=== PATIENT | male | born 1930 | race Caucasian/White ===

== ENCOUNTER 2017-04-24 11:14 | Emergency (ER) | payer MEDICARE, BC ==
[2017-04-24] MEDS ORDERED: METHYLPREDNISOLONE INJ 125 MG/2 ML SDV IV ONE (11:22)
[2017-04-24] MEDS ORDERED: IPRATROPIUM/ALBUTEROL 0.5-2.5 MG/3 ML AMPUL NEB ONE ×2 (11:22→11:26)
[2017-04-24] MEDS ORDERED: ALBUTEROL SULFATE 0.083% NEB 2.5 MG/3 ML AMPUL NEB ONE (11:26)
[2017-04-24] MEDS ORDERED: METHYLPREDNISOLONE INJ 125 MG/2 ML SDV ONE (11:27)
[2017-04-24] MEDS ORDERED: ALBUTEROL SULFATE 0.083% NEB 2.5 MG/3 ML AMPUL NEB SCH (11:37)
[2017-04-24] MEDS ORDERED: NITROGLYCERIN/D5W 50 MG/250 ML RTUINJ IV PRN (11:40)
--- NOTE | 2017-04-24 11:41 | ER Document Report ---
ED Respiratory Problem - General Mode of Arrival: Medic Information source: Patient - HPI Patient complains to provider of: COPD, Cough, Short of breath Associated symptoms: Other - see above <DAISHAVINCENT - Last Filed: 04/24/17 12:41> <LUISCLARK JAMAL - Last Filed: 04/24/17 17:26> - General Stated Complaint: SHORTNESS OF BREATH Time Seen by Provider: 04/24/17 11:31 Notes: Patient is an 87 year old male who presents to the ED via EMS with complaints of dyspnea, a productive cough and chest pain. Patient has a history of a fib and copd and does not use his nebulizer treatments. (VINCENT ASHTON) - Related Data Allergies/Adverse Reactions: No Known Allergies Allergy (Verified 04/24/17 11:43) Past Medical History - General Information source: Patient - Social History Smoking Status: Unknown if Ever Smoked Family History: Reviewed & Not Pertinent - Past Medical History Cardiac Medical History: Reports: Hx Atrial Fibrillation Pulmonary Medical History: Reports: Hx COPD <VINCENT ASHTON - Last Filed: 04/24/17 12:41> Review of Systems - Review of Systems Constitutional: No symptoms reported EENT: No symptoms reported Cardiovascular: See HPI, Chest pain Respiratory: See HPI, Cough, Short of breath, Sputum Gastrointestinal: No symptoms reported Genitourinary: No symptoms reported Male Genitourinary: No symptoms reported Musculoskeletal: No symptoms reported Skin: No symptoms reported Hematologic/Lymphatic: No symptoms reported Neurological/Psychological: No symptoms reported <VINCENT ASHTON - Last Filed: 04/24/17 12:41> Physical Exam - General General appearance: Alert, Other - appears uncomfortable In distress: Moderate - HEENT Head: Normocephalic, Atraumatic Eyes: Normal Extraocular movements intact: Yes Pupils: PERRL Mucous membranes: Dry - Respiratory Respiratory status: Tachypnea, Other - hypoxic Breath sounds: Other - crackles at bases - Cardiovascular Rhythm: Regular Heart sounds: Normal auscultation Murmur: No - Abdominal Inspection: Normal - Back Back: Normal - Extremities General upper extremity: Normal inspection, Normal ROM General lower extremity: Normal inspection, Normal ROM. No: Edema - Neurological Neuro grossly intact: Yes - Psychological Associated symptoms: Normal affect, Normal mood - Skin Skin Temperature: Warm Skin Moisture: Dry Skin Color: Normal <VINCENT ASHTON - Last Filed: 04/24/17 12:41> - Vital signs Vitals: Resp Pulse Ox 29 H 94 04/24/17 11:22 04/24/17 11:22 Course - Laboratory Result Diagrams: 04/24/17 11:32 04/24/17 11:32 - Consults Dr. Mccarty Time consulted: 11:40 [facility] Transfer Time consulted: 12:41 <VINCENT ASHTON - Last Filed: 04/24/17 12:41> - Laboratory Result Diagrams: 04/24/17 11:32 04/24/17 11:32 - Diagnostic Test Radiology reviewed: Reports reviewed <CLARK SMITH - Last Filed: 04/24/17 17:26> - Re-evaluation Re-evalutation: 04/24/17 15:23 Patient is an 87-year-old male who comes in with difficulty breathing. Patient apparently has had chest pain all night. It is substernal. Patient has been given aspirin here in the emergency department. Patient's troponin has come back at 20. Patient also has an elevated BNP and vascular congestion on his chest x-ray. Patient was started on BiPAP and a nitroglycerin drip. Patient was on 50 mcg which controlled his chest pain. He was titrated down due to issues with his blood pressure. Patient was then titrated back up because of chest pain. Patient was discussed with [facility] and due to his chest pain , elevated troponin, ischemic changes on EKG, and new onset heart failure will be transferred for further evaluation and possible stent. This is been discussed at length with the patient who agrees with this plan. Patient also will be given simvastatin and Plavix on the recommendation of the accepting physician, Dr. Bojorquez. 04/24/17 17:23 Patient is stable at this [facility] ( CLARK SMITH) - Vital Signs Vital signs: Temp Pulse Resp BP Pulse Ox 98.4 F 26 H 103/73 98 04/24/17 11:56 04/24/17 15:31 04/24/17 15:31 04/24/17 15:31 - Laboratory Laboratory results interpreted by pa: 04/24/17 04/24/17 04/24/17 11:32 11:32 11:32 WBC 11.0 H Hgb 12.8 L MCH 26.6 L MCHC 31.9 L RDW 16.6 H Seg Neutrophils % 82.0 H Lymphocytes % 8.1 L Absolute Neutrophils 9.0 H PT ABG pO2 Potassium 5.2 H Creatinine 1.66 H Est GFR ( Amer) 48 L Est GFR (Non-Af Amer) 39 L Direct Bilirubin 0.5 H AST 124 H Creatine Kinase 1033 H CK-MB (CK-2) 95.80 H NT-Pro-B Natriuret Pep 04/24/17 04/24/17 04/24/17 11:32 11:32 15:12 WBC Hgb MCH MCHC RDW Seg Neutrophils % Lymphocytes % Absolute Neutrophils PT 15.9 H ABG pO2 100.3 H Potassium Creatinine Est GFR ( Amer) Est GFR (Non-Af Amer) Direct Bilirubin AST Creatine Kinase CK-MB (CK-2) NT-Pro-B Natriuret Pep 69678 H - Consults Dr. Mccarty Reason for consultation: 04/24/17 1140 Put in a message for Dr. Mccarty to review patient and call be back. 1143 Dr. Mccarty returned the call. He said to not give any lytics and that patients EKG looks like ischemic changes. (VINCENT ASHTON) Critical Care Note - Critical Care Note Total time excluding time spent on procedures (mins): 120 - Assessment and management of respiratory distress, chest pain, acute coronary syndrome,NSTEMI coordination of transfer, consultation with specialist,, multiple re-evaluations , counseling of patient and family <CLARK SMITH - Last Filed: 04/24/17 17:26> Discharge <VINCENT ASHTON - Last Filed: 04/24/17 12:41> <CLARK SMITH - Last Filed: 04/24/17 17:26> - Discharge Clinical Impression: Acute coronary syndrome, Respiratory distress Acute heart failure Qualifiers: Heart failure type: unspecified heart failure type Qualified Code(s): I50.9 - Heart failure, unspecified Condition: Stable Disposition: [facility] Referrals: JOSE ROBERTO ESPINOZA MD [Primary Care Provider] - Follow up as needed Scribe Attestation: 04/24/17 17:26 I personally performed the services described in the documentation, reviewed and edited the documentation which was dictated to the scribe in my presence, and it accurately records my words and actions. (CLARK SMITH) Scribe Documentation - Scribe Written by Josette:: josette Mendiola, 04/24/2017, 1221 acting as scribe for :: Luis <VINCENT ASHTON - Last Filed: 04/24/17 12:41>
[2017-04-24] MEDS ORDERED: ASPIRIN 81 MG TABLET, CHEWABLE PO ONE (11:42)
[2017-04-24 12:01] LABS: ABSOLUTE EOSINOPHILS # (AUTO) 0.1 10^3/uL (0.0-0.6); ABSOLUTE LYMPHOCYTES (AUTO) 0.9 10^3/uL (0.5-4.7); ABSOLUTE MONOCYTES (AUTO) 0.9 10^3/uL (0.1-1.4); BASOPHILS % (AUTO) 0.4 % (0-2); EOSINOPHILS % (AUTO) 1.3 % (0-6); HEMOGLOBIN 12.8 g/dL (13.5-17.0); HGB HCT DIFFERENCE -1.6; LYMPHOCYTES % (AUTO) 8.1 % (13-45); MEAN CORPUSCULAR HEMOGLOBIN 26.6 pg (27.0-33.4); MEAN CORPUSCULAR HGB CONC 31.9 g/dL (32.0-36.0); MEAN CORPUSCULAR VOLUME 83 fl (80-97); MONOCYTES % (AUTO) 8.2 % (3-13); RED CELL DISTRIBUTION WIDTH 16.6 % (11.5-14.0)
--- NOTE | 2017-04-24 12:23 | RADIOLOGY REPORT (SQ) ---
EXAM DESCRIPTION: CHEST SINGLE VIEW COMPLETED DATE/TIME: 04/24/2017 11:53 am REASON FOR STUDY: shortness of breath COMPARISON: 07/07/2010 EXAM PARAMETERS: NUMBER OF VIEWS: One view. TECHNIQUE: Single frontal radiographic view of the chest acquired. RADIATION DOSE: NA LIMITATIONS: None. FINDINGS: LUNGS AND PLEURA: Chronic changes versus infiltrate in the left base. Possible lateral pl eural thickening the left lower hemithorax. MEDIASTINUM AND HILAR STRUCTURES: No masses. Contour normal. HEART AND VASCULAR STRUCTURES: Heart size is borderline. There is no adithya CHF. BONES: No acute findings. HARDWARE: None in the chest. OTHER: No other significant finding. IMPRESSION: 1. Left lower lobe pneumonia versus chronic change. 2. Possible pleural thickening on the left versus loculated small pleural effusion. TECHNICAL DOCUMENTATION: JOB ID: [id number]
[2017-04-24 12:24] LABS: ALANINE AMINOTRANSFERASE 28 U/L (21-72); ALBUMIN 4.2 g/dL (3.5-5.0); ALKALINE PHOSPHATASE 114 U/L (38-126); ANION GAP 14 (5-19); ASPARTATE AMINO TRANSFERASE 124 U/L (17-59); BILIRUBIN,DIRECT 0.5 mg/dL (0.0-0.4); BILIRUBIN,TOTAL 1.1 mg/dL (0.2-1.3); BLOOD UREA NITROGEN 20 mg/dL (7-20); CALCIUM 9.9 mg/dL (8.4-10.2); CARBON DIOXIDE 26 mmol/L (22-30); CHLORIDE 100 mmol/L (98-107); CREATINE KINASE 1033 U/L (55-170); CREATININE RESULT 1.66 mg/dL (0.52-1.25); GLUCOSE 104 mg/dL (75-110); POTASSIUM 5.2 mmol/L (3.6-5.0); SODIUM 140.3 mmol/L (137-145); TOTAL PROTEIN 8.2 g/dL (6.3-8.2)
[2017-04-24] MEDS ORDERED: NORMAL SALINE 500 ML IV ONE (12:26)
[2017-04-24 12:36] LABS: CREATINE KINASE MB 95.8 ng/mL (<4.55)
[2017-04-24 12:39] LABS: TROPONIN I 20.7 ng/mL
--- NOTE | 2017-04-24 12:48 | EKG REPORT ---
SEVERITY:- ABNORMAL ECG - SINUS RHYTHM VENTRICULAR BIGEMINY FIRST DEGREE AV BLOCK CONSIDER RVH W/ SECONDARY REPOL ABNORMALITY : Confirmed by: Jhon Miller MD 24-Apr-2017 12:47:27
--- NOTE | 2017-04-24 12:48 | EKG REPORT ---
SEVERITY:- ABNORMAL ECG - SINUS RHYTHM VENTRICULAR PREMATURE COMPLEX FIRST DEGREE AV BLOCK PROBABLE LEFT ATRIAL ABNORMALITY CONSIDER RVH W/ SECONDARY REPOL ABNORMALITY : Confirmed by: Jhon Miller MD 24-Apr-2017 12:47:58
[2017-04-24] MEDS ORDERED: FUROSEMIDE INJ/PF 40 MG/4 ML SDV IV ONE (13:46)
[2017-04-24] MEDS ORDERED: FUROSEMIDE INJ/PF 40 MG/4 ML SDV ONE (13:50)
[2017-04-24] MEDS ORDERED: ATORVASTATIN CALCIUM 80 MG TABLET PO ONE (14:11)
[2017-04-24] MEDS ORDERED: CLOPIDOGREL BISULFATE 300 MG TABLET PO ONE (14:15)
[2017-04-24 15:01] LABS: PARTIAL THROMBOPLASTIN TIME 35.5 SEC (23.5-35.8); PROTHROMBIN TIME 15.9 SEC (11.4-15.4)
[2017-04-24 15:32] LABS: ARTERIAL BLOOD BASE EXCESS -1.4 mmol/L; ARTERIAL BLOOD O2 SATURATION 97.6 % (94-98)
[2017-04-24 18:13] VITALS: BP 107/72
--- NOTE | 2017-04-24 18:34 | EKG REPORT ---
SEVERITY:- ABNORMAL ECG - SINUS RHYTHM PAIRED VENTRICULAR PREMATURE COMPLEXES FIRST DEGREE AV BLOCK CONSIDER RVH W/ SECONDARY REPOL ABNORMALITY : Confirmed by: Jhon Miller MD 24-Apr-2017 18:33:28
== END 2017-04-24 18:22 | disposition short-term general hospital (02) ==
LOC: ER 11:14
DX: I24.9 Acute ischemic heart disease, unspecified (principal); I50.9 Heart failure, unspecified; J44.9 Chronic obstructive pulmonary disease, unspecified; R06.02 Shortness of breath; R05 Cough; R00.0 Tachycardia, unspecified; R09.02 Hypoxemia; R07.89 Other chest pain; R74.8 Abnormal levels of other serum enzymes
CPT/HCPCS: 93005; 94640 ×2; 99291; 99292; 96375; 96365; 96366; 36415; 82553; 82803; 82550; 85025; 85610; 85730; 80053; 84484; 83880; 71010; 93010; 94660; A9270 ×5; J1940; J2930; J3490; J7040; J7620